=== PATIENT | male | born 1995 | race Two or more races ===

== ENCOUNTER 2023-12-20 15:57 | Emergency (ER) | payer OTHER ==
[~2023-12-20] VITALS: Ht 175.3 cm; Wt 70.3 kg
== END 2023-12-20 18:25 | disposition home or self-care (01) ==
LOC: ER 15:57
DX: J06.9 Acute upper respiratory infection, unspecified (principal)

== ENCOUNTER 2024-03-04 10:57 | Emergency (ER) | payer OTHER ==
[~2024-03-04] VITALS: Ht 175.3 cm; Wt 72.6 kg
[2024-03-04] MEDS ORDERED: ACETAMINOPHEN 500 MG GEL..CAP PO ONE (13:00)
== END 2024-03-04 13:30 | disposition home or self-care (01) ==
LOC: ER 10:57
DX: R51.9 Headache, unspecified (principal)